=== PATIENT | female | born 1990 | race Two or more races ===

== ENCOUNTER 2019-07-21 19:30 | Emergency (ER) | payer OTHER ==
[~2019-07-21] VITALS: Ht 157.5 cm; Wt 55.0 kg
--- NOTE | 2019-07-21 19:43 | NUR ---
BIB [facility] AT D REQUEST. PT SEEN DRIVING WRONG WAY ON STREET. PT NAKED. ONLY BELONGINGS ARE KEYS. [employer] IS PLACING PT ON HOLD. PT DENIES SI/HI. PT STATES SHE DOES NOT HAVE ANY MED HX, BUT [facility] STATES HX BIPOLAR. PT JUST RELEASE FROM [facility] YESTERDAY. WOUND NOTED ON LOWER STERNUM. ROOM SECURE. BELONGINGS PLACED IN ED LOCKER.
[2019-07-21 20:06] LABS: BASOPHILS # (AUTO) 0.03 x10^3/uL (0-0.1); BASOPHILS % (AUTO) 0 % (0-1); EOSINOPHILS # (AUTO) 0.08 x10^3/uL (0-0.4); EOSINOPHILS % (AUTO) 1 % (1-7); LYMPHOCYTES # (AUTO) 1.97 x10^3/uL (1-3.4); LYMPHOCYTES % (AUTO) 20 % (22-44); MD NO; MEAN CORPUSCULAR HEMOGLOBIN 28.7 pg (27.0-34.8); MEAN CORPUSCULAR HGB CONC 33.1 g/dL (32.4-35.8); MEAN CORPUSCULAR VOLUME 86.7 fL (80-100); MEAN PLATELET VOLUME 7.9 fL (7.4-10.4); MONOCYTES % (AUTO) 8 % (2-9); NEUTROPHILS # (AUTO) 6.95 x10^3/uL (1.8-6.8); NEUTROPHILS % (AUTO) 71 % (42-75); PLATELET COUNT 294 x10^3/uL (130-400); RED CELL DISTRIBUTION WIDTH 13.8 % (9.6-15.2)
--- NOTE | 2019-07-21 20:08 | NUR ---
PT AMBULATED TO RESTROOM WITH STEADY GAIT AND PROVIDED A URINE SAMPLE. URINE COLLECTED AND TAKEN TO LAB. LABS DRAWN.
[2019-07-21 20:16] LABS: ALANINE AMINOTRANSFERASE 39 U/L (12-78); ALBUMIN 3.9 g/dL (3.4-5.0); ANION GAP 7 mmol/L (5-15); CALCIUM 9.4 mg/dL (8.5-10.1); CHLORIDE 112 mmol/L (98-107); CREATININE 0.76 mg/dL (0.55-1.02)
[2019-07-21 20:19] LABS: SALICYLATE LEVEL < 1.7 mg/dL (2.8-20.0)
[2019-07-21 20:22] LABS: BILIRUBIN,TOTAL 0.3 mg/dL (0.2-1.0)
[2019-07-21 20:23] LABS: ALKALINE PHOSPHATASE 61 U/L (45-117); TOTAL PROTEIN 7.5 g/dL (6.4-8.2)
[2019-07-21 20:24] LABS: AMPHETAMINE SCREEN, URINE Negative (Negative); BARBITURATE SCREEN, URINE Negative (Negative); BENZODIAZEPINE SCREEN, URINE Negative (Negative); CANNABINOID SCREEN, URINE Negative (Negative); COCAINE SCREEN, URINE Negative (Negative); METHADONE SCREEN, URINE Negative (Negative); OPIATE SCREEN, URINE Negative (Negative)
--- NOTE | 2019-07-21 20:25 | NUR ---
ALL RESULTS ARE BACK AT THIS TIME CHART UP FOR RECHECK.
--- NOTE | 2019-07-21 20:39 | NUR ---
PT GIVEN SANDWICH AND TEA FROM [employer]
--- NOTE | 2019-07-21 20:47 | NUR ---
UPON FURTHER ASSESSMENT OF WOUND ON STERNUM, PT STATES IT'S OLD AND SHE PICKS AT IT, SO IT OPENS UP AT TIMES.
--- NOTE | 2019-07-21 21:26 | NUR ---
PT RESTING COMFORTABLY ON GURNEY. WICHO. PT IN DIRECT SIGHT OF SITTER.
--- NOTE | 2019-07-21 22:37 | NUR ---
PT RESTING COMFORTABLY ON GURNEY. WICHO. PT IN DIRECT SIGHT OF SITTER.
--- NOTE | 2019-07-22 00:11 | NUR ---
RESTING QUIETLY, NAD AT THIS TIME, SITTER OUTSIDE ROOM FOR PT SAFETY
--- NOTE | 2019-07-22 00:44 | NUR ---
PT REQUESTING TO TALK TO THE DOCTOR, WHEN THIS RN ASKED WHAT SHE NEEDS AND IF I COULD HELP HER, PT STATED " I DON'T WANT TO TALK TO YOU I WANT TO TALK TO THE DOCTOR. PT ALSO DENIES SUICIDAL THOUGHTS BUT STATED " I'M HAVING THOUGHT OF HARMING OTHERS", PT REFUSES TO ANSWER ANY OTHER QUESTIONS AT THIS TIME SHE REPEATED " I ONLY WANT TO TALK TO THE DOCTOR", ERP UPDATED REGARDING PT STATUS AND REQUEST. ERP AT PT'S BEDSIDE. SITTER REMAINS AT DOORWAY FOR CONTINOUS MONITORING, ROOM SECURED
--- NOTE | 2019-07-22 01:27 | NUR ---
faxed referral packet to [facility]
--- NOTE | 2019-07-22 01:41 | NUR ---
HOSPITAL BED ORDERED. PT RESTING WITH EYES CLOSED, NAD, RESPIRATIONS EVEN AND UNLABORED. SITTER AT DOORWAY FOR CONTINOUS MONITORING
--- NOTE | 2019-07-22 02:26 | NUR ---
PROVIDED PT WITH HOSPITAL BED, PT RESTING CALMLY, DENIES FURTHER NEEDS, SITTER AT DOORWAY FOR CONTINOUS MONITORING
--- NOTE | 2019-07-22 03:23 | NUR ---
PT NOW RESTING IN BED WITH EYES CLOSED, NAD, EQUAL CHEST RISE/FALL OBSERVED, SITTER AT DOORWAY FOR CONTINOUS MONITORING
--- NOTE | 2019-07-22 03:55 | NUR ---
BREAKFAST TRAY ORDERED.
--- NOTE | 2019-07-22 04:33 | NUR ---
PT ASKING "HOW MUCH LONGER SHE WILL BE HERE", DISCUSSED POC WITH PT. PT STATED " TELL THE DOCTOR THAT THE LONGER I STAY HERE THAT IT IS NOT GOOD FOR HIM", WHEN THIS RN ASKED PT WHAT SHE MEANS, PT STATED " DON'T WORRY JUST TELL HIM THAT". DISCUSSED NEED FOR ANTIANXIETY MEDICATION WITH PT, PT REFUSED NEED FOR MEDICATION. ERP UPDATED. SITTER REMAINS AT DOORWAY FOR CONTINOUS MONITORING
--- NOTE | 2019-07-22 05:33 | NUR ---
PT SITTING UP IN BED, NAD, DENIES NEEDS A THIS TIME, SITTER AT DOORWAY FOR CONTINOUS MONITORING
--- NOTE | 2019-07-22 06:02 | NUR ---
PT UP WALKING IN ROOM, SHE IS REQUESTING DOCTOR TO COME INTO ROOM. PT STATED " I WANT TO SEE IF HE WILL LET ME LEAVE NOW", DISCUSSED POC WITH PT AND REMINDED HER THAT SHE IS ON A HOLD.
--- NOTE | 2019-07-22 06:11 | NUR ---
PT VERBALIZED UNDERSTANDING, PA UPDATED THAT PT REQUESTING TO SEE DOCTOR, PT STATED "THAT'S OK I CAN WAIT FOR HIM"
--- NOTE | 2019-07-22 06:32 | NUR ---
ERP AT PT'S BEDSIDE
--- NOTE | 2019-07-22 06:40 | NUR ---
PT UP WALKING IN ROOM, STATED "I SLEPT GOOD I DONT NEED ANYTHING", NAD, RESPIRATIONS EVEN AND UNLABORED, SITTER AT DOORWAY FOR CONTINOUS MONITORING
--- NOTE | 2019-07-22 07:09 | NUR ---
report given to lester cee
--- NOTE | 2019-07-22 07:28 | NUR ---
REPORT FROM GEE RN RECIEVED, PT PACING IN ROOM SHE IS AWAKE AND APPEARS CALM. SI PRECAUTIONS OBSERVED. NAD NOTED
--- NOTE | 2019-07-22 08:01 | NUR ---
SOC IN WITH PT FOR EVAL
--- NOTE | 2019-07-22 08:28 | NUR ---
PT REFUSED VS TO BE TAKEN, STATES "IM FINE I KNOW MYSELF"
--- NOTE | 2019-07-22 10:35 | NUR ---
PT RESTING ON HOSPITAL BED AT THIS TIME. APPEARS CALMER THEN THIS AM. PT DENIES NEEDS AT THIS TIME
--- NOTE | 2019-07-22 13:00 | NUR ---
Estrada castellanos in [facility] - 07/22/19 at 1327 by MERLE MANNY CONSTANTINO IN TO [facility] PT
--- NOTE | 2019-07-22 13:00 | NUR ---
PT ASKING WHEN SHE WILL BE ABLE TO LEAVE, PT REMINDED OF LEGAL HOLD. PT UPDATED ON POC. PT WITH NO OTHER NEEDS AT THIS TIME, NAD NOTED
--- NOTE | 2019-07-22 14:39 | NUR ---
PT NOW RESTING ON HOSPITAL BED, PT CALM AND COOPERATIVE. PT DOES FREQUENTLY COME OUT TO DOORWAY, PT DOES NOT ATTEMPT TO ELOPE. PT NEEDING FREQUENT REMINDING TO STAY INSIDE ROOM. NAD NOTED
--- NOTE | 2019-07-22 15:16 | NUR ---
MANNY CONSTANTINO IN TO EVAL PT AT THIS TIME
[2019-07-22] MEDS ORDERED: LORazepam 1MG TABLET PO PRN (16:30)
[2019-07-22] MEDS ORDERED: DIPHENHYDRAMINE 25 MG CAPSULE PO PRN (16:30)
[2019-07-22] MEDS ORDERED: DIPHENHYDRAMINE 50 MG/ML, 1ML IM PRN (16:30)
[2019-07-22] MEDS ORDERED: HALOPERIDOL 5 MG TABLET PO PRN (16:30)
[2019-07-22] MEDS ORDERED: HALOPERIDOL 5 MG/ML IM PRN (16:30)
[2019-07-22] MEDS ORDERED: LORazepam 2 MG/ML, 1ML IM PRN (16:30)
--- NOTE | 2019-07-22 17:00 | NUR ---
PT REQUESTING SHOWER. OK FOR PT TO HAVE SHOWER PER MANNY CONSTANTINO. PT GIVEN SUPPLIES AND ASSISTED WITH SHOWER
--- NOTE | 2019-07-22 20:39 | NUR ---
PT RESTING ON HOSPITAL BED. PT LAUGHING FREQUENTLY TO SELF. PT OFTEN PACES AROUND ROOM. PT REFUSING ANY MEDICATIONS AND REFUSING TO LET THIS RN TAKE VITAL SIGNS. SITTER AT DOORWAY FOR FREQUENT CHECKS.
--- NOTE | 2019-07-22 21:00 | NUR ---
PT RESTING ON HOSPITAL BED EYES CLOSED, RESPIRATIONS EVEN AND UNLABORED. SITTER AT DOORWAY FOR FREQUENT CHECKS.
--- NOTE | 2019-07-22 22:00 | NUR ---
PT RESTING ON HOSPITAL BED EYES CLOSED, RESPIRATIONS EVEN AND UNLABORED. SITTER AT DOORWAY FOR FREQUENT CHECKS.
--- NOTE | 2019-07-22 23:39 | NUR ---
PT RESTING ON HOSPITAL BED EYES CLOSED, RESPIRATIONS EVEN AND UNLABORED. SITTER AT DOORWAY FOR FREQUENT CHECKS.
--- NOTE | 2019-07-23 04:40 | NUR ---
PT RESTING ON HOSPITAL BED EYES CLOSED, RESPIRATIONS EVEN AND UNLABORED. SITTER AT DOORWAY FOR FREQUENT CHECKS.
--- NOTE | 2019-07-23 06:00 | NUR ---
PT TO THE SHOWER WITH JOHANA
--- NOTE | 2019-07-23 06:04 | NUR ---
MEAL TRAY ORDERED
--- NOTE | 2019-07-23 07:06 | NUR ---
REPORT RECEIVED FROM DARON MULLEN.
--- NOTE | 2019-07-23 07:50 | NUR ---
MEAL TRAY PROVIDED AT THIS TIME.
--- NOTE | 2019-07-23 09:06 | NUR ---
PT SLEEPING IN HOSPITAL BED. RESPS EVEN AND UNLABORED. SITTER MONITORING FROM HALLWAY FOR SAFETY. ROOM REMAINS SECURE.
--- NOTE | 2019-07-23 10:06 | NUR ---
pt watching tv. pt's aox4. resps even and unlabored. sitter monitoring from hallway for safety. room remains secure.
--- NOTE | 2019-07-23 10:21 | NUR ---
pt amb in hallway with steady gait to make a phone call with sitter at this time.
--- NOTE | 2019-07-23 11:38 | NUR ---
faxed updated summary report to [facility] / attempted to call for update but ph busy.
--- NOTE | 2019-07-23 11:49 | NUR ---
pt resting in hospital bed. resps even and unlabored. sitter monitoring from hallway for safety. room remains secure.
--- NOTE | 2019-07-23 12:24 | NUR ---
meal tray provided at this time.
--- NOTE | 2019-07-23 13:33 | NUR ---
PT STATES " I NEED SOME MED FOR WOUND ON CHEST." EDMD NOTIFIED.
--- NOTE | 2019-07-23 13:39 | NUR ---
PT KEEPS SAYING"I'M GOING HOME TODAY. DOCTOR TOLD ME I GO HOME ON WEDNESDAY. PLEASE ASK DOCTOR AGAIN." THIS RN EDUCATED REGARDING HER POC. PT STILL SAYING" I NEED TO TALK TO DOCTOR. THEY TOLD ME I GO HOME SOON." PT WOULD LIKE TO TALK TO MEN'S GOLF COACH OR MOTORBOAT MECHANIC HELPER AT THIS TIME.
[2019-07-23] MEDS ORDERED: NEOSPORIN OINT. PKT 1 PACKET ONE (13:45)
--- NOTE | 2019-07-23 13:47 | NUR ---
EMT CLEANED WOUND AND PUT ANTIBIOTIC OINTMENT AT THIS TIME PWE EDMD ORDER.
--- NOTE | 2019-07-23 13:52 | NUR ---
BINDERY MACHINE TENDER AT BEDSIDE TO EXPLAIN ABOUT POC AT THIS TIME.
--- NOTE | 2019-07-23 14:28 | NUR ---
PT IS NAKID AND STOOD UP ON HOSPITAL BED. THIS RN EDUCATED REGARDING HER BEHAVIOR. PT KEEPS SAYING" I NEED TO TALK TO SENIOR CONSTRUCTION ESTIMATOR." SENIOR CONSTRUCTION ESTIMATOR NOTIFIED AT THIS TIME.
--- NOTE | 2019-07-23 14:53 | NUR ---
PROCESS MOLD TECHNICIAN: PT REQUESTING TO BE D/C HOME. I SPOKE WITH AND REVIEWED CHART DOCUMENTATION WITH DR. DE LEON. DR DE LEON IS UPHOLDING THE LEGAL HOLD. I IMFORMED PT THAT SHE CAN NOT BE D/C AND EXPLAINED THAT SHE WILL HAVE AN OPORTUNITY TO SPEAK WITH THE DEEP TISSUE MASSAGE THERAPIST ON WEDNESDAY. PT VERBALIZED UNDERSTANDING. PT WAS CALM AND COOPERATIVE.
--- NOTE | 2019-07-23 15:15 | NUR ---
PT IS WALKING AROUND THIS DEPARTMENT WITH SITTER AT THIS TIME.
--- NOTE | 2019-07-23 16:08 | NUR ---
TWO WARM BLANKETS GIVEN AT THIS TIME PER PT REQUEST.
--- NOTE | 2019-07-23 16:20 | NUR ---
PT BACK TO ROOM. PT RESTING IN HOSPITAL BED. RESPS EVEN AND UNLABORED. SITTER MONITORING FROM HALLWAY FOR SAFETY. ROOM REMAINS SECURE.
--- NOTE | 2019-07-23 16:26 | NUR ---
MEAL TRAY PROVIDED AT THIS TIME.
--- NOTE | 2019-07-23 16:34 | NUR ---
SOCKS GIVEN AT THIS TIME.
--- NOTE | 2019-07-23 17:34 | NUR ---
FAMILY MEMBERS ARE IN ROOM. THEY BROUGHT SOME FOOD FOR PT. THIS RN CHECKED THE FOOD BEFORE THEY WERE IN ROOM.
--- NOTE | 2019-07-23 17:54 | NUR ---
PT WOULD LIKE THE FAMILY MEMBER TO TAKE HER KEYS. THIS RN ASKED CHARGE NURSE AND CONTINUOUS CONVEYOR SCREEN DRIER SAID "IT'S OK, SINCE PT SAID OK." THIS RN OPENED THE LOCKER AND GAVE BACK HER BELONGINGS. PT OPENED THE BACK IN FRONT OF THIS RN AND FAMILY MEMBERS, BUT KEYS ARE NOT IN THE BAG. ONLY PT'S EAR RINGS AND SHOES ARE IN THE BAG. PT AND PT'S FAMILY MEMEBR SAID "[employer] TOOK IT."
--- NOTE | 2019-07-23 18:04 | NUR ---
THIS RN TOOK A LOOK WITH FLUSH LIGHT IN THE LOCKER AND FOUND SMALL KEYS IN THE LOCKER. PT AND PT'S FAMILY MEMBERS SAID"IT'S HERS." THIS RN GAVE THE LOBO BACK TO HER FAMILY MEMEBRS IN FRONT OF PT AND SITTER AT THIS TIME.
--- NOTE | 2019-07-23 18:13 | NUR ---
PT WALKING AROUND HALLWAY WITH SITTER AT THIS TIME. THIS RN EDUCATED PT AND SITTER REGARDING WALKING RULES AT THIS TIME.
--- NOTE | 2019-07-23 18:58 | NUR ---
REPORT GIVEN TO VINCE MULLEN.
--- NOTE | 2019-07-23 19:09 | NUR ---
RECEIVED RPT FROM PAZ RUIZ. ASSUMED CARE OF PT.
--- NOTE | 2019-07-23 19:10 | NUR ---
PT SHOWERING, SITTER WITH PT. NO OTHER NEEDS AT THIS TIME.
--- NOTE | 2019-07-23 19:51 | NUR ---
PT IN SHOWER AND BECAME AGITATED AND TOOK THE SHOWER HEAD AND POINTED TOWARDS SITTER. SITTER EXITED BR AND NOTIFIED THIS RN ABOUT SITUATION. I ARRIVED TO FIND THE BR AND HALLWAY FLOODED WITH WATER. PT ESCORTED TO ROOM, SITTER AT DOORWAY. WATER CLEANED UP WITH ASSISTANCE OF MULTIPLE STAFF AND HOUSEKEEPING. DOUGH MAKER NOTIFIED.
--- NOTE | 2019-07-23 23:12 | NUR ---
PT RESTING WITH EYES CLOSED. SAFTEY PRECAUTIONS IN PLACE. SITTER AT DOORWAY
--- NOTE | 2019-07-24 01:05 | NUR ---
PT RESTING WITH EYES CLOSED. SAFTEY PRECAUTIONS IN PLACE. SITTER AT DOORWAY
--- NOTE | 2019-07-24 03:00 | NUR ---
PT RESTING WITH EYES CLOSED. SAFTEY PRECAUTIONS IN PLACE. SITTER AT DOORWAY.
--- NOTE | 2019-07-24 05:36 | NUR ---
PT AWAKE WATCHING TV. CALM AND COOPERATIVE. SITTER AT DOORWAY.
--- NOTE | 2019-07-24 06:50 | NUR ---
RECEIVED REPORT FROM CHARLENE MULLEN. EQUIPMENT AND SUPPLIES SECURED BEHIND PULLDOWN DOORS. PT IN DIRECT VIEW OF SITTER.
--- NOTE | 2019-07-24 08:05 | NUR ---
AWAKE AND UP TO BATHROOM. CONVERSING WITH SITTER. PROVIDED BREAKFAST
--- NOTE | 2019-07-24 08:41 | NUR ---
PT SITTING ON CHAIR OUTSIDE ROOM AND FIRMLY REDIRECTED BACK TO HER ROOM. PT INFORMED SHE MAY NOT LEAVE HER ROOM. SITTER REMAINS IN PT'S VIEW
--- NOTE | 2019-07-24 09:00 | NUR ---
PT HAS RASH/SKIN BREAKDOWN BETWEEN BREASTS THAT SHE STATES HAS BEEN THERE FOR 3 WEEKS. PT HAS IT OPEN TO AIR
--- NOTE | 2019-07-24 10:15 | NUR ---
PT LYING IN BED WATCHING TV
--- NOTE | 2019-07-24 10:51 | NUR ---
OUB AT DOORWAY WANTING TO STEP INTO BUSH. REDIRECTED BACK INTO ROOM BY SITTER.
--- NOTE | 2019-07-24 12:50 | NUR ---
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 QUESTIONS ANSWERED REGARDING HOLD AND ATTEMPT TO PLACE IN FACILITY.
--- NOTE | 2019-07-24 16:30 | NUR ---
SITTING IN BED QUIETLY
--- NOTE | 2019-07-24 17:05 | NUR ---
REPORT TO BRITTANY MULLEN
--- NOTE | 2019-07-24 17:40 | NUR ---
PT IN BED, SITTER AT BEDSIDE. DENIES ANY CURRENT NEEDS OR CONCERNS.
--- NOTE | 2019-07-24 19:33 | NUR ---
PT SITTING IN BED, SITTER AT BEDSIDE. DENIES ANY CURRENT NEEDS.
--- NOTE | 2019-07-24 21:33 | NUR ---
PT AWAKE WATCHING TV. PLEASANT AND COOPERATIVE. NO OTHER NEEDS AT THIS TIME.
--- NOTE | 2019-07-24 23:00 | NUR ---
REPORT FROM PAZ COOPER. PT RESTING IN HOSPITAL BED WATCHING TV. ROOM SECURE. SITTER PRESENT.
--- NOTE | 2019-07-25 | NUR ---
PT RESTING, INTERMITTENTLY DOZING. NAD NOTED. ROOM SECURE, SITTER PRESENT
--- NOTE | 2019-07-25 01:00 | NUR ---
PT PROVIDED SI COMPLIANT MEAL TRAY. PT CALM AND COOPERATIVE. SITTER PRESENT.
--- NOTE | 2019-07-25 01:45 | NUR ---
PT RESTING IN GURNEY W/ EYES OPEN. NAD NOTED. SITTER PRESENT. ROOM SECURE
--- NOTE | 2019-07-25 02:02 | NUR ---
REPORT TO PAZ CHANG
--- NOTE | 2019-07-25 03:00 | NUR ---
PT RESTING WITH EYES CLOSED. NO NEEDS AT THIS TIME. MONITOR IN PLACE. SITTER IN HALLWAY.
--- NOTE | 2019-07-25 04:00 | NUR ---
PT RESTING WITH EYES CLOSED. NO NEEDS AT THIS TIME. MONITOR IN PLACE. SITTER IN HALLWAY.
--- NOTE | 2019-07-25 07:14 | NUR ---
REPORT RECIEVED FROM GEE RN, PT IN [facility], REQUESTING SHOWER THIS AM. BREAKFAST TRAY ORDERED WILL ALLOW PT SHOWER AFTER BREAKFAST, PT AGGREEABLE TO THIS.
[2019-07-25 08:41] VITALS: BP 101/72
--- NOTE | 2019-07-25 08:44 | NUR ---
PT GIVEN MEAL TRAY, PT GRATEFUL. VITALS TAKEN AND STABLE. PT AMBULATED TO PHONE TO MAKE CALL. BACK TO AT THIS TIME
--- NOTE | 2019-07-25 09:40 | NUR ---
PT ASSISTED WITH SHOWER. BACK TO IN CLEAN GOWN
--- NOTE | 2019-07-25 10:43 | NUR ---
REPORT GIVEN TO DOV MULLEN AT [facility], PT TO BE TRANSFERED AT [id number]
--- NOTE | 2019-07-25 12:27 | NUR ---
PT STRIPPING OFF CLOTHES ASKING FOR LINEN CHANGE AND NEW GOWN. EXPLAINED TO PT THAT SHE HAD BEEN GIVEN A NEW GOWN AFTER HER SHOWER THIS AM AND SHE NEEDS TO KEEP IT ON, PT GIVEN HER MEAL TRAY. PT EXPECTED TO DC TO [facility] SHORTLY, EXPLAINED TO PT THERE WOULD NOT BE A NEED FOR A LINEN CHANGE AT THIS TIME
--- NOTE | 2019-07-25 13:06 | NUR ---
[facility] HERE TO CREAM RIPENER PT. BELONGINGS FROM LOCKER RETURNED TO PT, VERIFIED KEYS AND CLOTHING WITH ROOMATE. PT STABLE ON TRANSFER
== END 2019-07-25 13:10 ==
LOC: ED 22:00
DX: F20.89 Other schizophrenia (principal)
CPT/HCPCS: 36415; 80053; 80307; 84703; 85025; 99285